=== PATIENT | female | born 1955 | race Caucasian/White ===

== ENCOUNTER 2024-08-12 09:39 | Outpatient (CLI) | payer MEDICARE, OTHER, SELFPAY ==
--- NOTE | 2024-08-12 10:09 | ECG_ITS ---
Test Date: 2024-08-12 10:15:57 Measurements Intervals [place] Rate: 58 P: 47 IA: 203 QRS: 9 QRSD: 85 T: 67 QT: 430 QTc: 423 Interpretive Statements SINUS BRADYCARDIA BORDERLINE AV CONDUCTION DELAY RSR' IN V1 OR V2, RIGHT VCD OR RVH BASELINE ARTIFACT- I, II, III, AVR, AVL, AVF, V2 BORDERLINE ECG No previous ECG available for comparison Electronically Signed On 08-12-2024 10:46:37 CDT by Arley Burnett D.O.
== END 2024-08-12 09:40 | disposition home or self-care (01) ==
LOC: ANHSURGERY 09:48
PROVIDERS: PCP Family Medicine; Visit Provider Urology
DX: Z01.810 Encounter for preprocedural cardiovascular examination (principal); E78.00 Pure hypercholesterolemia, unspecified; R00.1 Bradycardia, unspecified
CPT/HCPCS: 93005

== ENCOUNTER 2024-08-15 02:35 | Day surgery (SDC) | payer MEDICARE, OTHER, SELFPAY ==
--- NOTE | 2024-08-10 17:16 | PM.IMHP ---
H&P: HPI History of Present Illness Date/Time: 08/10/24 17:16 Chief Complaint: urge incontinence fecal incontinence Narrative: successful trial of sacral nerve stimulation Review of Systems Review of Systems: All systems reviewed & are unremarkable except as noted in HPI and below Exam Narrative: no acute distress normal breathing alert and oriented x3 Assessment and Plan Assessment and plan (1) Urge incontinence: Code(s): N39.41 - Urge incontinence Status: Acute Assessment and Plan: InterStim implant (2) Fecal incontinence not due to organic disease: Code(s): F98.1 - Encopresis not due to a substance or known physiological condition Status: Acute
[2024-08-11 10:16] VITALS: BMI 27.7
--- NOTE | 2024-08-11 10:38 | PC.NURSE ---
Report to the Outpatient Waiting Room, entrance under the green pavilion located off [facility], at time _8:30AM_ on date _08/15/24_. Planned Procedure Time: _10:30AM_.? Time changes happen often and if your time is changed the preop area will call you the afternoon before. - You and your visitor will be asked to self-screen and do not enter if you have any COVID symptoms. Please call surgeon if you need to reschedule. - A mask is optional within the hospital at this time. Patients may have clear liquids (water, carbonated beverages, clear teas, apple juice) until 3 hours prior to surgery with a maximum of 20 ounces. - No food from midnight until time of surgery and no smoking. Take only the following medications with a SIP of water on the morning of surgery: LEVOTHYROXINE DO NOT STOP ANY OF YOUR OTHER PRESCRIPTION MEDICATIONS PRIOR TO SURGERY EXCEPT THE FOLLOWING Medications to discontinue per physician ___HOLD ALL VITAMINS/SUPPLEMENTS 7 DAYS PRE-OP PER DR SAWANT Date to take last dose 08/07/24 Please no make-up, nail indonesian, hairspray, perfume, deodorant, or body powder the day of surgery.? No jewelry (including any body piercings) or valuables the day of surgery, leave them at home.? Please take a shower or bath the night before, or the morning of, surgery with an antibacterial soap.? Wear comfortable, loose fitting clothing.? - Jewelry must be removed prior to entering the operating room.? Rings and piercings that are not removed may be cut off. - The hospital will not accept responsibility for valuables.? - Please leave all valuables, including medications, at home the day of surgery. If you are going home after surgery, a licensed class c driver must drive you home.? - NO public transportation without another adult if you receive anesthesia. - We recommend that an adult stay with you for 24 hours following discharge. - We also recommend that you do not drive, make important decision, drink alcoholic beverages, or take any drugs that were not prescribed by your health care provider for at least 24 hours after your discharge time. Follow any additional instructions given to you from your surgeon. Telephone instructions given to PATIENT and asked if any additional questions and then verbalized understanding. Patient advised to call surgeon office or pre surgery nurse liaison [phone] if any additional questions.
--- NOTE | ~2024-08-15 | XR_ITS ---
EXAMINATION: XR fluoroscopy no charge DATE: 08/15/2024 11:40 INDICATION: Urge incontinence. TECHNIQUE: 2 intraoperative fluoroscopic views of the pelvis were obtained. I was not present. Fluoro scopy exposure time was 65 seconds. COMPARISON: None. FINDINGS: There is no side marker. There is an electrode in an S3 neural foramen. IMPRESSION: 1. Electrode in an S3 neural foramen. Reviewed, dictated and finalized at location A.
--- NOTE | 2024-08-15 04:38 | WPDHPUPDATE1 ---
History and Physical Update Update Date/Time: 08/15/24 04:38 History and Physical has been reviewed, including an updated exam of the patient. There are NO changes in the patient's condition. Risks, benefits, and alternatives have been discussed and questions answered. Patient agrees to proceed with procedure.
[2024-08-15 09:00] VITALS: BP 147/82; PULSE 65; RESP 16; TEMP 36.6; O2SAT 100
[2024-08-15] MEDS: LACTATED RINGERS 1,000 ML 30 ML IV CONT (09:00)
--- NOTE | 2024-08-15 11:00 | P.PNAN_ITS ---
Anes - Initial Pre Proc Eval Procedure: Operation Date: 08/15/24 10:30 Proposed Procedures p Neurostimulator Implant - Arturo Merrill MD Date/Time: 08/15/24 11:00 Surgeon: Arturo Merrill MD Pre Op Diagnosis: sensory urge incontinence Patient Data Age: 69 Gender: F Height: 1.6 m Weight: 71 kg Allergies Allergy/AdvReac Type Severity Reaction Status Date / Time No Known Allergies Allergy Verified 08/11/24 10:07 Home Medications Medication Instructions Recorded Confirmed Type calcium carbonate (Tums) 200 mg PO BID PRN GERD 08/11/24 08/11/24 History diclofenac sodium 1 % topical gel 1 ea topical BID PRN Pain 08/11/24 08/11/24 History levothyroxine 25 mcg tablet 25 mcg PO QAM 08/11/24 08/11/24 History (Synthroid) magnesium 250 mg tablet 500 mg PO DAILY 08/11/24 08/11/24 History multivitamin with iron (Hair 3 tablet PO DAILY 08/11/24 08/11/24 History Vitamins tablet) [id number]-nni-other [id number] 1,050 cap PO DAILY 08/11/24 08/11/24 History oil 350 mg- 400 mg capsule psyllium husk 3.4 gram/5.4 gram 1 tbsp PO DAILY 08/11/24 08/11/24 History oral powder (Metamucil) rosuvastatin 20 mg tablet 20 mg PO QAM 08/11/24 08/11/24 History turmeric root extract 500 mg tablet 500 mg PO DAILY 08/11/24 08/11/24 History hydrocodone 5 mg-acetaminophen 325 1 tablet PO Q6H PRN pain #15 tabs 08/15/24 Rx mg tablet Patient hx anesthesia problems: none Family hx anesthesia problems: none Results Review: All pre-operative results and documents have been reviewed as part of the pre- operative evaluation. [facility] Social History Social History Smoking status: Never smoker Alcohol intake: current Living arrangements: with family Additional living arrangements comments: [facility]USB Spiritual care concerns: No Anes - Eval Final PreProcedure Day of Procedure 08/15/24 11:00 Patient weight: normal Heart: regular rate and rhythm Lungs: clear to auscultation Airway: Mallampati scale class II Neurological: alert and oriented Last oral intake: >/= 8 hours ASA classification: II Emergent: no Anesthetic plan: proceed Anesthesia type and monitoring: general GIVS and standard monitoring Results Review: All pre-operative results and documents have been reviewed as part of the pre- operative evaluation. Hyperlipidemia, hypothyroidism. Pt reports a chr cough, no acute changes and she is at baseline today. Informed Consent: The patient's anesthetic plan and its attendant risks and benefits were d iscussed with the patient/family/POA. Questions were solicited and answers provided to the satisfaction of the patient/family/POA.
[2024-08-15] MEDS: ceFAZolin 2 GM/D5W 50 ML 2 GM/50 ML BAG IVPB (11:18)
[2024-08-15] MEDS: BUPIVACAINE/EPINEPHRINE 0.5% 10 ML VIAL 20 ML INFILTRATE (11:20)
[2024-08-15 11:45] VITALS: BP 118/65; PULSE 114; RESP 16; O2SAT 97
--- NOTE | 2024-08-15 11:47 | W.PM.PROC2 ---
Procedure Note - Detailed Date of Procedure 08/15/24 Pre-op Diagnosis sensory urge incontinence Post-op Diagnosis Same Procedure Performed Implantation of sacral lead 89875 Placement of implantable pulse generator 82934 Complex neurostimulator programming impedance check 10255 Surgeon Arturo Merrill MD Anesthesia MAC and Local Indications This is a patient with refractory urge urinary incontinence. They have undergone a successful trial of sacral nerve stimulation. They present today for permanent implantation. They understand the risks of bleeding, infection, decreased efficacy, need for revision and battery changes. They agree to proceed Findings See dictated Description of Procedure They were correctly identified and informed consent was obtained. There brought to the operating room. There placed in the prone position. There given appropriate perioperative antibiotics. A time-out performed. I used fluoroscopy to yoni out my sacral landmarks in the AP and the lateral orientation. I anesthetized the skin. I entered the S3 foramen. I monitored the needle with fluoroscopy. I got appropriate Jimmy and toe response at a low threshold. I made a skin wilian. I placed a stylet. I placed the lead introducer sheath. I thinned placed and deployed to my lead. I got appropriate responses again at a low threshold. I marked out the site of the pulse generator. I anesthetized the skin and made that incision. I created a subcutaneous pocket to house the pulse generator. I tunneled the lead towards this pocket. Appropriate connections were made between the lead and the battery. It was placed in the pocket. It was programmed and impedances were checked and found to be normal. I irrigated out all wounds. I ensured hemostasis. I closed the subcutaneous tissues with 2 Vicryl. I closed the skin with 4 0 Vicryl. Glue was applied. There then awakened and transferred to the PACU in stable condition. Implants Sacral neurostimulator Estimated Blood Loss 5 Drains No Packing No Pathology None sent Condition Stable Disposition PACU
[2024-08-15 12:02] VITALS: BMI 27.6
[2024-08-15 12:15] VITALS: BP 121/69; PULSE 62; RESP 16
[2024-08-15] MEDS: oxyCODONE HCL (*CRX) 5 MG TAB IR PO (12:20)
[2024-08-15 12:45] VITALS: BP 124/59; PULSE 65; RESP 16
[2024-08-15 13:05] VITALS: BP 131/67; PULSE 74; RESP 16
== END 2024-08-15 13:15 | disposition home or self-care (01) ==
PROVIDERS: PCP Family Medicine; Visit Provider Urology
PROC: (CPT 64561; principal; 2024-08-15 10:30)
DX: N39.41 Urge incontinence (principal); F98.1 Encopresis not due to a substance or known physiological condition
CPT/HCPCS: 64561; 64590; 99199; A9270; C1767; C1778; C1787; J0690; J2250; J2405; J2704; J3010; J7120